=== PATIENT | female | born 1980 | race Asian ===

== ENCOUNTER 2022-02-18 12:58 | Emergency (ER) | payer OTHER ==
[~2022-02-18] VITALS: Ht 154.9 cm; Wt 57.6 kg
--- NOTE | 2022-02-18 13:10 | NUR ---
[id number] FRM HOME. SLIPPED AND FELL ON MY R KNEE. 07/23 PS. IN ROOM AIR AND DENIES SOB. RESPIRATION REGULAR AND UNLABORED. WILL CONTINUE TO MONITOR THE PATIENT.
[2022-02-18] MEDS ORDERED: MORPHINE SULFATE INJ 4 MG/ML DISP.SYRIN ONE (13:52)
[2022-02-18] MEDS ORDERED: ONDANSETRON 4 MG TAB.RAPDIS ONE (13:53)
[2022-02-18] MEDS ORDERED: ONDANSETRON 4 MG TAB.RAPDIS SL ONE (14:00)
[2022-02-18] MEDS ORDERED: MORPHINE SULFATE INJ 2 MG/ML DISP.SYRIN IM ONE (14:00)
--- NOTE | 2022-02-18 14:11 | NUR ---
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
[2022-02-18] MEDS ORDERED: OXYC-117 PO (15:22)
--- NOTE | 2022-02-18 16:00 | NUR ---
Patient discharged to home in stable condition. Written and verbal after care instructions given. Patient verbalizes understanding of instruction.
[2022-02-18 16:01] VITALS: BP 117/78
== END 2022-02-18 16:01 | disposition home or self-care (01) ==
LOC: ER 12:58
DX: S82.031A Displaced transverse fracture of right patella, initial encounter for closed fracture (principal); Z79.891 Long term (current) use of opiate analgesic; W01.0XXA Fall on same level from slipping, tripping and stumbling without subsequent striking against object, initial encounter; Y93.01 Activity, walking, marching and hiking; Y92.099 Unspecified place in other non-institutional residence as the place of occurrence of the external cause; Y99.8 Other external cause status
CPT/HCPCS: 29505; 73564; 96372; 99283; J2270; Q0162